=== PATIENT | female | born 1965 ===

== ENCOUNTER 2017-05-27 10:28 | Inpatient (IN) | payer MEDICARE ==
--- NOTE | 2017-05-22 11:23 | Anesthesia Consultation ---
Anesthesia Consult and Med Hx Date of service: 05/27/17 - Airway Anesthetic Teeth Evaluation: Good, Dentures (upper) ROM Head & Neck: Adequate Mental/Hyoid Distance: Adequate Mallampati Class: Class II Intubation Access Assessment: Probably Good - Pulmonary Exam CTA: Yes - Cardiac Exam Cardiac Exam: RRR - Pre-Operative Health Status ASA Pre-Surgery Classification: ASA3 Proposed Anesthetic Plan: General Nerve Block: adductor canal - Pulmonary Hx Smoking: No Hx Asthma: No Hx Respiratory Symptoms: No (+tb skin test, negative CXR) Hx Sleep Apnea: No (LUISA PRE SCREEN HIGH RISK) - Cardiovascular System Hx Hypertension: Yes (X 20 YRS) Hx Heart Murmur: Yes (CUASES NO PROBLEMS) - Central Nervous System Hx Neuromuscular Disorder: Yes (rheumatoid arthritis) Hx Back Pain: Yes Hx Psychiatric Problems: Yes - Gastrointestinal Hx Gastroesophageal Reflux Disease: Yes - Endocrine Hx Renal Disease: No Hx Cirrhosis: No Hx Thyroid Disease: No - Other Systems Hx Cancer: No Hx Obesity: Yes
[~2017-05-27 10:28] MED LIST: NACL 0.9% 1000 ML 1,000 ML IV SCH; PEPCID PO NR; SUBLIMAZE IV NR; VERSED IV NR
[2017-06-03] MEDS ORDERED: VERSED IV NR (06:00)
[2017-06-03] MEDS ORDERED: PEPCID PO NR (06:00)
[2017-06-03] MEDS ORDERED: SUBLIMAZE IV NR (07:00)
[2017-06-03] MEDS ORDERED: ANCEF/STERILE WATER 2 GM/20 ML IV NR (07:00)
[2017-06-03] MEDS ORDERED: XYLOCAINE 1% 20 mL ONE (10:28)
[2017-06-03] MEDS ORDERED: MARCAINE 0.25% INFILTRATI ONE ×3 (10:29→16:10)
[2017-06-03] MEDS ORDERED: NACL 0.9% 250ML 250 ML ONE (10:29)
[2017-06-03] MEDS ORDERED: POLYMYXIN B SULFATE IV ONE ×3 (10:29→15:26)
[2017-06-03] MEDS ORDERED: NACL ONE (10:29)
[2017-06-03] MEDS ORDERED: TORADOL ONE (10:29)
[2017-06-03] MEDS ORDERED: CLORPACTIN WCS-90 IR ONE (10:30)
[2017-06-03] MEDS ORDERED: BACITRACIN ONE (10:30)
[2017-06-03] MEDS: NACL 0.9% 1000 ML 1,000 ML IV SCH ×2 (12:00→22:57)
[2017-06-03] MEDS ORDERED: MARCAINE 0.5% 30 ML INFILTRATI ONE (13:26)
[2017-06-03] MEDS ORDERED: TRANEXAMIC ACID ONE (13:41)
[2017-06-03] MEDS ORDERED: SUBLIMAZE ONE (13:43)
[2017-06-03] MEDS ORDERED: DIPRIVAN 10 MG/ML IV ONE (13:43)
[2017-06-03] MEDS ORDERED: TRANEXAMIC ACID IV ONE (13:59)
[2017-06-03] MEDS ORDERED: NEO SYNEPHRINE/NS Syringe(OR USE) IV ONE (14:00)
[2017-06-03] MEDS ORDERED: VANCOMYCIN/NS 1 GM/250 ML 1 GM/250 ML BAG IV ONE (14:00)
[2017-06-03] MEDS ORDERED: NEO SYNEPHRINE ONE (14:06)
[2017-06-03] MEDS ORDERED: DECADRON ONE (14:16)
[2017-06-03] MEDS ORDERED: ROBINUL ONE ×2 (14:16→15:49)
[2017-06-03] MEDS ORDERED: ZOFRAN ONE (14:16)
[2017-06-03] MEDS ORDERED: XYLOCAINE MPF 2% ONE (14:34)
[2017-06-03] MEDS ORDERED: ZEMURON IV ONE (14:34)
[2017-06-03] MEDS ORDERED: MORPHINE ONE (15:15)
[2017-06-03] MEDS ORDERED: NACL 0.9% 1000 ML 1,000 ML ONE (15:19)
[2017-06-03] MEDS ORDERED: BACITRACIN IR ONE ×2 (15:25)
[2017-06-03] MEDS ORDERED: NEOSTIGMINE ONE (15:50)
[2017-06-03] MEDS ORDERED: NACL INFILTRATI ONE ×2 (16:10)
[2017-06-03] MEDS ORDERED: TORADOL PO ONE ×2 (16:10)
[2017-06-03] MEDS ORDERED: MORPHINE IM ONE ×2 (16:10)
[2017-06-03] MEDS ORDERED: MILK OF MAGNESIA PO PRN (17:09)
[2017-06-03] MEDS ORDERED: ZOFRAN IV PRN (17:09)
[2017-06-03] MEDS ORDERED: PHENERGAN PR PRN (17:09)
[2017-06-03] MEDS ORDERED: NORCO 10/325 PO PRN (17:14)
--- NOTE | 2017-06-03 17:21 | Anesthesia Day of Surgery ---
Anesthesia Day of Surgery - Day of Surgery Patient Examined: Yes Patient H&P Reviewed: Yes Patient is NPO: Yes
[2017-06-03] MEDS ORDERED: VANCOMYCIN 1,750 MG in NACL 0.9% 500 ML 500 ML IV SCH (17:30)
--- NOTE | 2017-06-03 17:53 | Post Anesthesia Evaluation ---
- Post Anesthesia Evaluation Patient Participated: Yes Airway Patent: Yes Stable Respiratory Function: Yes Nausea/Vomiting: No Temp > 96.8F: Yes Pain Manageable: Yes Adequeate Hydration: Yes Anesthesia Complications: No Block Receding Appropriately: Not Applicable Patient on Ventilator: No
[2017-06-03] MEDS ORDERED: VANCOMYCIN/NS 1 GM/250 ML 1 GM/250 ML BAG IV SCH (18:00)
[2017-06-03] MEDS ORDERED: ANCEF/STERILE WATER 2 GM/20 ML 2 GM/20 ML SYRINGE IV SCH (18:00)
[2017-06-03] MEDS ORDERED: SODIUM CHLORIDE FLUSH SYRINGE 10 ML IV NR (18:00)
--- NOTE | 2017-06-03 18:18 | XRay Report ---
FINAL REPORT EXAM: XR KNEE 1-2V RT HISTORY: POSTOP TECHNIQUE: AP and lateral radiographs of the right knee. PRIORS: None. FINDINGS: Right knee prosthesis is present without evidence of hardware complication. No dislocation. Normal mineralization. Soft tissue swelling anterior to the right knee is likely postsurgical. Air and fluid in the joint space is likely postsurgical. IMPRESSION: Postoperative findings of right knee prosthesis placement without evidence of immediate complication.
--- NOTE | 2017-06-03 20:00 | Operative Report ---
PREOPERATIVE DIAGNOSIS: 1. Severe advanced osteoarthritis, right knee joint. 2. Severe genu valgum deformity, stiff right knee joint. POSTOPERATIVE DIAGNOSIS: 1. Severe advanced osteoarthritis, right knee joint. 2. Severe genu valgum deformity, stiff right knee joint. PROCEDURES PERFORMED: 1. Right total knee replacement, complex. 2. Partial synovectomy, right knee joint. SURGEON: Dagoberto Acosta M.D. GRAIN COMBINER: Kaur Lazo, [employer] tech, and Deven [employer] tech. IMPLANTS USED: Legion Oxinium femoral component, femur size 5 tibial tray size 4, prolong Poly-S, polyethylene liner 9 mm, highly cross-linked. Stabilized insert constrained insert. Patella all-poly 3 peg patella size 32 mm, 3 post 7.5 mm thick. Cement Palacos R plus G. Incision, midline incision. Arthrotomy, medial parapatellar arthrotomy. Medial release, no lateral release, yes, release of lateral and posterolateral capsular release of the IT band. COMPLICATIONS: None. DETAILS OF THE OPERATIVE REPORT: The patient was taken to the operating room. Smooth general endotracheal anesthesia, all the bony prominences were carefully padded, placed supine on the operating table. Thigh tourniquet was placed. Right lower extremity prepped and draped in sterile fashion. Leg elevated, tourniquet. After adequate timeout was done, and 2 g Ancef given before the procedure along with 1 g of vancomycin given her history. Leg elevated, Esmarch used, and tourniquet inflated to 300 mmHg. Longitudinal incision made over the anterior aspect of the knee exposing the extensive mechanism. Arthrotomy was performed. Patella displaced laterally. Gross finding revealed severe advanced degenerative arthritis. Soft tissue release was performed to correct the fixed angular deformity, only necessary release was done only the retractors on medial side, no medial release was performed as such. Significant amount of arthritis was encountered. Drill was used to open up the femoral canal. Distal intramedullary femoral cutting guide was placed. Distal femur resected 5 degree valgus angle. Epicondylar access apex was determined. Femoral sizing guide was placed, appropriate components selected. Anterior and posterior condyles were resected with the oscillating saw. Following this, the extramedullary tibial cutting guide was placed. The proximal tibia resected perpendicular to the long axis of tibia, minimum bone resection was performed given the stretched out medial collateral ligament. There was a defect on the posterolateral tibia. We did gap balancing technique was then performed. Spacer blocks were used, there was some tightness in extension and in flexion, necessary release of the capsule and the IT band was performed, and good balancing was achieved with the spacer block by spacer. We had great stability, full extension, full flexion, balanced laterally in flexion and extension as well. We decided to go. The tibia was then prepared, but tibial reaming and broach system by placing the tibial tray in proper position, proper external rotation, impacted in place, and prepared for the procedure in her respective patellar aspect of the tibia. Reaming and broach system by placing the tibial tray in proper position, proper external rotation. Femur was then positioned. Femur was then prepared for a Partida and Nephew trial femur. Through Partida and Nephew trial femur, by reaming and punch technique. Following this, the patella for prepatellar thickness was measured to 22 mm. Post-patellar thickness 22.5 mm. Osteophytes around the patella was removed. Synovium was incised. Patella prepared via patellar reaming system prepared for three post-patella. Patella was then moved through range of motion, patella tracked central throughout range of motion. With trial components, we had full extension, full flexion, stable throughout range of motion. Patellar tracking central. Trial components were removed. Thoroughly washed the knee area with antibiotic-soaked normal saline followed by normal saline and partial synovectomy was performed. The defect on the proximal lateral tibia were needed drill holes and was not significant enough less than 5 mm and the pole was only on the circumscribed defect on the posteromedial side and necessary drill holes were made, some bone grafting were placed as well and built with cement. Cementing on the knee was then performed. Tibia was cemented first, set in proper position, proper external rotation, impacted in place. Excess cement was removed. Femur was then cemented in proper position, proper external rotation, and impacted in place. The excess cement was removed. Cementing of the patella was performed, compressed in place. Excess cement was removed. Once the cement was hardened, real tibial articulating surface was implanted and locked in place. Knee moved through range of motion and found to be extremely stable. No active bleeder as such after tourniquet was released, hemostasis achieved. No active bleeder as such. Arthrotomy closed using combination of #2 Quill suture and with 0 Vicryl sutures. Subcutaneous tissue was closed with 0 and 2-0 Vicryl interrupted sutures. Skin was closed with 2-0 Monocryl. Gauze dressing was done with Adaptic, 4 x 4s, ABD, cast padding, Cristobal wrap, and knee immobilizer was applied. Given the significant release, which was done and the deformity corrected and ice packs were applied. The patient tolerated the procedure well, shifted to recovery room in stable condition. Sponge and needle count was correct. JOB# [id number] SK/NTS
--- NOTE | 2017-06-03 20:15 | Consultation ---
History of Present Illness - Reason for Consult Consult date: 06/03/17 Medical management Requesting physician: FABIOLA LEVI - History of Present Illness PECHANGA:51-year-old female status post right total knee arthroplasty is being seen for medical management. Patient is postop and doing well. Lying comfortably. Family at bedside. Patient has history of rheumatoid arthritis and hypertension.No fever no chills. No shortness of breath. Past History Past Medical History: arthritis (rheumatoid arthritis), GERD, hypertension, other (depression) Past Surgical History: total knee replacement Social history: no significant social history, lives with family, full code Family history: hypertension Medications and Allergies Allergies Allergy/AdvReac Type Severity Reaction Status Date / Time ciprofloxacin [From Cipro] Allergy ELEVATED Verified 05/20/17 16:30 HEART RATE oxycodone [From Percocet] Allergy Itching Verified 05/20/17 16:30 Home Medications Medication Instructions Recorded Confirmed Last Taken Type Duloxetine HCl [Cymbalta] 60 mg PO DAILY 05/20/17 06/03/17 06/03/17 History Lisinopril [Zestril TAB] 30 mg PO QDAY 05/20/17 06/03/17 06/03/17 History Meloxicam 15 mg PO DAILY 05/20/17 06/03/17 05/20/17 History Pantoprazole [Protonix] 40 mg PO QDAY 05/20/17 06/03/17 06/03/17 History Prednisone 5 mg PO DAILY 05/20/17 06/03/17 06/03/17 History Tofacitinib Citrate [Xeljanz Xr] 11 mg PO DAILY 05/20/17 06/03/17 05/27/17 History Active Meds: Active Medications Acetaminophen/Hydrocodone Bitart ([place] 10/325) 1 each PO Q4H PRN PRN Reason: Pain, Moderate (4-6) Aspirin (Halfprin Ec) 81 mg PO BID [facility] Stop: 07/08/17 21:59 Celecoxib (Celebrex) 200 mg PO BID [facility] Docusate Sodium (Colace) 100 mg PO BID [facility] Duloxetine HCl (Cymbalta) 60 mg PO QDAY [facility] Famotidine (Pepcid) 20 mg PO PREOP NR Stop: 06/03/17 23:59 Last Admin: 06/03/17 12:00 Dose: 20 mg Fentanyl (Sublimaze) 100 mcg IV ONCE NR Stop: 06/03/17 23:59 Last Admin: 06/03/17 13:06 Dose: 100 mcg Sodium Chloride (Nacl 0.9% 1000 Ml) 1,000 mls @ 100 mls/hr IV DIRECT [facility] Last Admin: 06/03/17 12:00 Dose: 100 mls/hr Cefazolin Sodium (Ancef/Sterile Water 2 Gm/20 Ml) 2 gm in 20 mls @ 20 mls/10 min IV Q8H [facility] Stop: 06/04/17 14:09 Vancomycin HCl (Vancomycin/Ns 1 Gm/250 Ml) 1 gm in 250 mls @ 166.667 mls/hr IV Q12H [facility] Stop: 06/04/17 15:29 Ketorolac Tromethamine (Toradol) 15 mg IV Q6HR [facility] Stop: 06/04/17 12:01 Lisinopril (Zestril) 30 mg PO QDAY [facility] Magnesium Hydroxide (Milk Of Magnesia) 30 ml PO Q4H PRN PRN Reason: Constipation Midazolam HCl (Versed) 2 mg IV PREOP NR Stop: 06/03/17 23:59 Last Admin: 06/03/17 13:35 Dose: 2 mg Morphine Sulfate (Morphine) 2 mg IV Q4H PRN PRN Reason: Pain, Moderate (4-6) Ondansetron HCl (Zofran) 4 mg IV Q8H PRN PRN Reason: Nausea And Vomiting Pantoprazole Sodium (Protonix) 40 mg PO QDAY [facility] Prednisone (Deltasone) 5 mg PO DAILY [facility] Pregabalin (Lyrica) 75 mg PO BID [facility] Promethazine HCl (Phenergan) 25 mg GA Q6H PRN PRN Reason: Nausea And Vomiting Sodium Chloride (Sodium Chloride Flush Syringe 10 Ml) 10 ml IV PRN NR Stop: 06/04/17 17:59 Review of Systems All systems: negative Constitutional: no weight loss, no weight gain, no fever, no chills, no sweats, no night sweats Ears, nose, mouth and throat: no hoarseness, no sore throat, no swelling in mouth, no swelling in throat Breasts: deferred, normal Cardiovascular: no chest pain, no orthopnea, no palpitations, no rapid/ irregular heart beat, no edema, no syncope, no lightheadedness, no shortness of breath Respiratory: no cough, no cough with sputum, no excessive sputum, no hemoptysis , no shortness of breath, no dyspnea on exertion Gastrointestinal: no abdominal pain, no nausea, no vomiting, no diarrhea, no constipation, no change in bowel habits, no hematemesis, no coffee ground emesis Genitourinary Female: no dysuria, no urinary frequency, no urgency Menstruation: ammenorrhea Musculoskeletal: low back pain, no neck stiffness, no neck pain, no shooting arm pain Integumentary: no rash, no pruritis, no redness Neurological: no seizures, no syncope Psychiatric: no anxiety, no memory loss, no change in sleep habits, no sleep disturbances, no insomnia Endocrine: no cold intolerance, no heat intolerance, no polyphagia, no excessive thirst, no polydipsia Hematologic/Lymphatic: no easy bruising, no easy bleeding Allergic/Immunologic: no urticaria, no allergic rhinitis, no wheezing Exam - Constitutional Vitals: Temp Pulse Resp BP Pulse Ox 98.7 F 64 18 110/48 95 06/03/17 18:39 06/03/17 18:39 06/03/17 18:39 06/03/17 18:39 06/03/17 18:39 General appearance: Present: no acute distress, well-nourished - EENT Eyes: Present: PERRL ENT: hearing intact, clear oral mucosa - Neck Neck: Present: supple, normal ROM - Respiratory Respiratory effort: normal Respiratory: bilateral: CTA - Cardiovascular Heart rate: 76 Rhythm: regular Heart Sounds: Present: S1 & S2. Absent: rub, click - Extremities Extremities: no ischemia, pulses intact, pulses symmetrical, No edema Extremity abnormal: other Peripheral Pulses: within normal limits - Abdominal General gastrointestinal: Present: soft, non-tender, non-distended, normal bowel sounds Female genitourinary: Present: normal - Rectal Rectal Exam: deferred - Integumentary Integumentary: Present: clear, warm, dry - Musculoskeletal Musculoskeletal: gait normal, strength equal bilaterally - Psychiatric Psychiatric: appropriate mood/affect, intact judgment & insight - Neurologic Neurologic: CNII-XII intact, moves all extremities - Allied Health Allied health notes reviewed: nursing, case management Assessment and Plan - Patient Problems (1) History of total knee arthroplasty Current Visit: Yes Status: Acute Qualifiers: Laterality: right Qualified Code(s): Z96.651 - Presence of right artificial knee joint Plan to address problem: status post right TKA. Postop patient doing well. Patient to undergo physical therapy. Possible discharge on Thursday (2) Rheumatoid arthritis Current Visit: Yes Status: Chronic Qualifiers: Rheumatoid arthritis location: hand Laterality: bilateral Plan to address problem: continue meloxicam prednisone and XELJANZ XR which is Tofacitinib citrate. (3) Hypertension Current Visit: Yes Status: Chronic Qualifiers: Hypertension type: essential hypertension Qualified Code(s): I10 - Essential (primary) hypertension Plan to address problem: continue lisinopril 30 mg once a day. (4) Depression Current Visit: Yes Status: Chronic Qualifiers: Depression Type: unspecified Qualified Code(s): F32.9 - Major depressive disorder, single episode, unspecified Plan to address problem: continue Cymbalta 60 mg once a day (5) Pain management Current Visit: Yes Status: Acute Plan to address problem: patient has adequate pain management. Not in pain. (6) DVT prophylaxis Current Visit: Yes Status: Acute Plan to address problem: patient on aspirin 81 mg twice a day (7) Discharge planning issues Current Visit: Yes Status: Acute Plan to address problem: patient to be discharged on Thursday after physical therapy
[2017-06-03] MEDS ORDERED: ceFAZolin 2 GM in NACL 0.9% 100 ML IV SCH (22:00)
[2017-06-03] MEDS: HALFPRIN EC PO SCH (22:58)
[2017-06-03] MEDS: COLACE PO SCH (22:59)
[2017-06-03] MEDS: LYRICA PO SCH (22:59)
[2017-06-03] MEDS: TORADOL IV SCH (23:02)
[2017-06-03] MEDS: ANCEF/STERILE WATER 2 GM/20 ML 2 GM/20 ML SYRINGE IV SCH (23:08)
[2017-06-04] MEDS: MORPHINE IV PRN ×4 (01:35→22:59)
[2017-06-04] MEDS: VANCOMYCIN/NS 1 GM/250 ML 1 GM/250 ML BAG IV SCH ×2 (01:36→16:20)
[2017-06-04] MEDS: TORADOL IV SCH ×4 (02:45→14:20)
[2017-06-04 05:26] LABS: Hematocrit 31.3 % (30.3-42.9); Hemoglobin 10.8 gm/dl (10.1-14.3)
[2017-06-04 05:37] LABS: INR 0.96 (0.87-1.13)
[2017-06-04 05:49] LABS: Anion Gap 14 mmol/L; BUN/Creatinine Ratio 20; Blood Urea Nitrogen 10 mg/dL (7-17); Calcium 8.1 mg/dL (8.4-10.2); Carbon Dioxide 24 mmol/L (22-30); Chloride 105.8 mmol/L (98-107); Glucose 127 mg/dL (65-100); Potassium 4.9 mmol/L (3.6-5.0); Sodium 139 mmol/L (137-145)
[2017-06-04] MEDS: ANCEF/STERILE WATER 2 GM/20 ML 2 GM/20 ML SYRINGE IV SCH ×2 (06:23→16:03)
[2017-06-04] MEDS ORDERED: NON-FORMULARY (Lisinopril [Zestril Tab] 30 MG) PO SCH (10:00)
[2017-06-04] MEDS ORDERED: NON-FORMULARY (Duloxetine Hcl [Cymbalta] 60 MG) PO SCH (10:00)
[2017-06-04] MEDS: CYMBALTA PO SCH (12:04)
[2017-06-04] MEDS: HALFPRIN EC PO SCH ×2 (12:05→22:04)
[2017-06-04] MEDS: LYRICA PO SCH ×2 (12:05→22:04)
[2017-06-04] MEDS: COLACE PO SCH ×2 (12:05→22:04)
[2017-06-04] MEDS: ZESTRIL PO SCH (12:05)
[2017-06-04] MEDS: DELTASONE PO SCH (12:05)
[2017-06-04] MEDS: PROTONIX PO SCH (12:05)
--- NOTE | 2017-06-04 15:45 | Progress Note ---
Assessment and Plan (1) History of total knee arthroplasty Current Visit: Yes Status: Acute Qualifiers: Laterality: right Qualified Code(s): Z96.651 - Presence of right artificial knee joint Plan to address problem: status post right TKA. Postop patient doing well. Patient to undergo physical therapy. Possible discharge on Thursday (2) Rheumatoid arthritis Current Visit: Yes Status: Chronic Qualifiers: Rheumatoid arthritis location: hand Laterality: bilateral Plan to address problem: continue meloxicam prednisone and XELJANZ XR which is Tofacitinib citrate. (3) Hypertension Current Visit: Yes Status: Chronic Qualifiers: Hypertension type: essential hypertension Qualified Code(s): I10 - Essential (primary) hypertension Plan to address problem: continue lisinopril 30 mg once a day. (4) Depression Current Visit: Yes Status: Chronic Qualifiers: Depression Type: unspecified Qualified Code(s): F32.9 - Major depressive disorder, single episode, unspecified Plan to address problem: continue Cymbalta 60 mg once a day (5) Pain management Current Visit: Yes Status: Acute Plan to address problem: patient has adequate pain management. Not in pain. (6) DVT prophylaxis Current Visit: Yes Status: Acute Plan to address problem: patient on aspirin 81 mg twice a day (7) Discharge planning issues Current Visit: Yes Status: Acute Plan to address problem: patient to be discharged on Thursday after physical therapy Physical exam: General appearance: Present: no acute distress, well-nourished - EENT Eyes: Present: PERRL ENT: hearing intact, clear oral mucosa - Neck Neck: Present: supple, normal ROM - Respiratory Respiratory effort: normal Respiratory: bilateral: CTA - Cardiovascular Heart rate: 76 Rhythm: regular Heart Sounds: Present: S1 & S2. Absent: rub, click - Extremities Extremities: no ischemia, pulses intact, pulses symmetrical, No edema Extremity abnormal: other Peripheral Pulses: within normal limits - Abdominal General gastrointestinal: Present: soft, non-tender, non-distended, normal bowel sounds Female genitourinary: Present: normal - Rectal Rectal Exam: deferred - Integumentary Integumentary: Present: clear, warm, dry - Musculoskeletal Musculoskeletal: gait normal, strength equal bilaterally - Psychiatric Psychiatric: appropriate mood/affect, intact judgment & insight - Neurologic Neurologic: CNII-XII intact, moves all extremities - Allied Health Allied health notes reviewed: nursing, case management Subjective Date of service: 06/04/17 Interval history: Pt seen and examined no acute issue, had PT eval today Objective - Constitutional Vitals: Vital Signs - 12hr 06/04/17 06/04/17 06/04/17 04:31 04:32 06:22 Temperature 98.0 F Pulse Rate 74 74 Respiratory 20 20 Rate Blood Pressure 90/52 Blood Pressure [Right] O2 Sat by Pulse 93 93 Oximetry 06/04/17 06/04/17 06/04/17 06:52 07:08 10:34 Temperature 98.3 F Pulse Rate 63 Respiratory 20 18 Rate Blood Pressure 89/54 Blood Pressure [Right] O2 Sat by Pulse 95 95 Oximetry 06/04/17 12:00 Temperature 98.1 F Pulse Rate 89 Respiratory 16 Rate Blood Pressure Blood Pressure 89/51 [Right] O2 Sat by Pulse 96 Oximetry - Labs CBC & Chem 7: 06/04/17 04:55 06/04/17 04:55 Labs: Abnormal lab results 06/04/17 Range/Units 04:55 Creatinine 0.5 L (0.7-1.2) mg/dL Glucose 127 H (65-100) mg/dL Calcium 8.1 L (8.4-10.2) mg/dL
[2017-06-04] MEDS: NACL 0.9% 1000 ML 1,000 ML IV SCH ×2 (16:04→22:05)
[2017-06-05] MEDS: ZESTRIL PO SCH (10:23)
[2017-06-05] MEDS: CYMBALTA PO SCH (10:27)
[2017-06-05] MEDS: PROTONIX PO SCH (10:28)
[2017-06-05] MEDS: DELTASONE PO SCH (10:29)
[2017-06-05] MEDS: HALFPRIN EC PO SCH (10:30)
[2017-06-05] MEDS: LYRICA PO SCH (10:30)
[2017-06-05] MEDS: COLACE PO SCH (10:30)
[2017-06-05] MEDS: MORPHINE IV PRN (10:58)
[2017-06-05] MEDS: NACL 0.9% 1000 ML 1,000 ML IV SCH (10:59)
--- NOTE | 2017-06-05 11:14 | Progress Note ---
Assessment and Plan (1) History of total knee arthroplasty Current Visit: Yes Status: Acute Qualifiers: Laterality: right Qualified Code(s): Z96.651 - Presence of right artificial knee joint Plan to address problem: status post right TKA. Postop patient doing well. Patient to undergo physical therapy. Possible discharge today (2) Rheumatoid arthritis Current Visit: Yes Status: Chronic Qualifiers: Rheumatoid arthritis location: hand Laterality: bilateral Plan to address problem: continue meloxicam prednisone and XELJANZ XR which is Tofacitinib citrate. (3) Hypertension Current Visit: Yes Status: Chronic Qualifiers: Hypertension type: essential hypertension Qualified Code(s): I10 - Essential (primary) hypertension Plan to address problem: continue lisinopril 30 mg once a day. (4) Depression Current Visit: Yes Status: Chronic Qualifiers: Depression Type: unspecified Qualified Code(s): F32.9 - Major depressive disorder, single episode, unspecified Plan to address problem: continue Cymbalta 60 mg once a day (5) Pain management Current Visit: Yes Status: Acute Plan to address problem: patient has adequate pain management. Not in pain. (6) DVT prophylaxis Current Visit: Yes Status: Acute Plan to address problem: patient on aspirin 81 mg twice a day will place on lovenox (7) Discharge planning issues Current Visit: Yes Status: Acute Plan to address problem: patient to be discharged on Thursday after physical therapy Physical exam: General appearance: Present: no acute distress, well-nourished - EENT Eyes: Present: PERRL ENT: hearing intact, clear oral mucosa - Neck Neck: Present: supple, normal ROM - Respiratory Respiratory effort: normal Respiratory: bilateral: CTA - Cardiovascular Heart rate: 76 Rhythm: regular Heart Sounds: Present: S1 & S2. Absent: rub, click - Extremities Extremities: no ischemia, pulses intact, pulses symmetrical, No edema Extremity abnormal: other Peripheral Pulses: within normal limits - Abdominal General gastrointestinal: Present: soft, non-tender, non-distended, normal bowel sounds Female genitourinary: Present: normal - Rectal Rectal Exam: deferred - Integumentary Integumentary: Present: clear, warm, dry - Musculoskeletal Musculoskeletal: gait normal, strength equal bilaterally, right knee with wound dressing - Psychiatric Psychiatric: appropriate mood/affect, intact judgment & insight - Neurologic Neurologic: CNII-XII intact, moves all extremities - Allied Health Allied health notes reviewed: nursing, case management Subjective Date of service: 06/05/17 Interval history: Pt seen and examined no acute issue, plan to dc today Objective - Constitutional Vitals: Vital Signs - 12hr 06/05/17 06/05/17 06/05/17 00:12 04:44 09:52 Temperature 98.9 F 98.5 F Pulse Rate 76 83 Respiratory 18 18 Rate Blood Pressure 112/79 105/62 O2 Sat by Pulse 94 97 97 Oximetry - Labs CBC & Chem 7: 06/04/17 04:55 06/04/17 04:55
--- NOTE | 2017-06-05 11:51 | Progress Note ---
Subjective Date of service: 06/05/17 Interval history: ortho POD2, patient doing well with PT pain under control avss, NVI DResssing dry alert oriented DC planning once clear by medicine , PT , and once HH arrangemenmts are made KI for 3 days follow up thursday Objective Vital signs: Vital Signs - 12hr 06/05/17 06/05/17 06/05/17 00:12 04:44 09:52 Temperature 98.9 F 98.5 F Pulse Rate 76 83 Respiratory 18 18 Rate Blood Pressure 112/79 105/62 O2 Sat by Pulse 94 97 97 Oximetry - Labs CBC & BMP: 06/04/17 04:55 06/04/17 04:55
[2017-06-05] MEDS ORDERED: LOVENOX SUB-Q ONE (12:14)
[2017-06-05 14:46] VITALS: BP 101/66
== END 2017-06-05 19:00 | disposition home health service (06) | DRG 470 ==
LOC: 3A 06-03 10:33 → 3B-SURG 06-03 18:34
PROVIDERS: ADMIT Orthopaedic Surgery; ATTEND Internal Medicine
PROC: 0SRC069 Replacement of Right Knee Joint with Oxidized Zirconium on Polyethylene Synthetic Substitute, Cemented, Open Approach (ICD-10-PCS; principal; 2017-06-03)
PROC: 0SBC0ZZ Excision of Right Knee Joint, Open Approach (ICD-10-PCS; 2017-06-03)
DX: M17.11 Unilateral primary osteoarthritis, right knee (principal); M21.061 Valgus deformity, not elsewhere classified, right knee; I10 Essential (primary) hypertension; F32.9 Major depressive disorder, single episode, unspecified; M06.9 Rheumatoid arthritis, unspecified; M54.9 Dorsalgia, unspecified; K21.9 Gastro-esophageal reflux disease without esophagitis; E66.9 Obesity, unspecified; Z68.30 Body mass index [BMI] 30.0-30.9, adult; Z82.49 Family history of ischemic heart disease and other diseases of the circulatory system; Z88.1 Allergy status to other antibiotic agents; Z88.5 Allergy status to narcotic agent
CPT/HCPCS: 36415; 64450; 80048; 85014; 85018; 85610; 86850; 86900; 86901; 87116; 88305; 88311; 94760; C1713; C1776; G8978-GP; G8979-GP; J0690; J1100; J1885; J2250; J2270; J2370; J2405; J2704; J2710; J3010; J3370; J7030; J7040; J7050; J7512

== ENCOUNTER 2017-12-10 09:50 | Emergency (ER) | payer MEDICARE ==
--- NOTE | 2017-12-10 11:00 | Emergency Department Report ---
ED Medical Clearance HPI - General Chief complaint: Medical Clearance Stated complaint: NEEDS PIC LINE BACK IN Time Seen by Provider: 12/10/17 10:46 Source: patient Mode of arrival: Wheelchair - History of Present Illness Initial comments: Patient was sent to the ED by her primary doctor to have her PICC Line evaluated and possibly replaced. She said her PICC line is not functioning properly. -: Sudden Reason for Medical Clearance: other (PICC line non functioning) Place: home Alledged Intoxication: No Compliant with Home Medications: Yes Traumatic Symptoms: denies traumatic injury Treatments Prior to Arrival: none Home medications: Home Medications Medication Instructions Recorded Confirmed Last Taken Duloxetine HCl [Cymbalta] 60 mg PO DAILY 05/20/17 11/27/17 11/27/17 Prednisone 5 mg PO DAILY 05/20/17 11/27/17 11/27/17 Aspirin 325 mg PO BID 11/27/17 11/27/17 11/27/17 Previous Rx's Medication Instructions Recorded Last Taken Type Enoxaparin [Lovenox] 40 mg SUB-Q QDAY@2200 #10 syringe 12/03/17 Unknown Rx HYDROcodone/APAP 10-325 [[place] 1 each PO Q4H PRN #60 tablet 12/03/17 Unknown Rx 10-325 mg TAB] Pantoprazole [Protonix TAB] 40 mg PO QDAY #30 tablet 12/03/17 Unknown Rx Promethazine [Phenergan SUPPOS] 25 mg OK Q6H PRN #14 supp.rect 12/03/17 Unknown Rx cefTRIAXone [Ceftriaxone] 2 gm IV Q24HR #7 vial 12/03/17 Unknown Rx Allergies/Adverse reactions: Allergies Allergy/AdvReac Type Severity Reaction Status Date / Time ciprofloxacin [From Cipro] Allergy ELEVATED Verified 12/10/17 13:47 HEART RATE oxycodone [From Percocet] Allergy Itching Verified 12/10/17 13:47 ED Review of Systems ROS: Stated complaint: NEEDS PIC LINE BACK IN Other details as noted in HPI Comment: All other systems reviewed and negative Constitutional: denies: chills, fever Eyes: denies: eye pain ENT: denies: ear pain Respiratory: denies: cough, shortness of breath Cardiovascular: denies: chest pain, palpitations, edema Endocrine: no symptoms reported Gastrointestinal: denies: abdominal pain, nausea, vomiting, diarrhea Genitourinary: denies: urgency, dysuria, frequency Musculoskeletal: denies: back pain, joint swelling Skin: denies: rash, lesions, change in color Neurological: denies: headache, weakness, numbness Psychiatric: denies: anxiety, depression Hematological/Lymphatic: denies: easy bleeding, easy bruising ED Past Medical Hx - Past Medical History Hx Hypertension: Yes (X 20 YRS) Hx Congestive Heart Failure: No Hx Diabetes: No Hx Deep Vein Thrombosis: No Hx GERD: Yes Hx Renal Disease: No Hx Arthritis: Yes (RA- DAILY STEROIDS) Hx Asthma: No Hx COPD: No Hx Tuberculosis: No (POSITIVE SKIN TEST,NO [place] , NEG CXR EARLY 2016) Hx HIV: No - Surgical History Past Surgical History?: No Hx Pacemaker: No Hx Internal Defibrillator: No - Social History Smoking Status: Never Smoker Substance Use Type: Alcohol - Medications Home Medications: Home Medications Medication Instructions Recorded Confirmed Last Taken Type Duloxetine HCl [Cymbalta] 60 mg PO DAILY 05/20/17 11/27/17 11/27/17 History Prednisone 5 mg PO DAILY 05/20/17 11/27/17 11/27/17 History Aspirin 325 mg PO BID 11/27/17 11/27/17 11/27/17 History Enoxaparin [Lovenox] 40 mg SUB-Q QDAY@2200 #10 syringe 12/03/17 Unknown Rx HYDROcodone/APAP 10-325 [[place] 1 each PO Q4H PRN #60 tablet 12/03/17 Unknown Rx 10-325 mg TAB] Pantoprazole [Protonix TAB] 40 mg PO QDAY #30 tablet 12/03/17 Unknown Rx Promethazine [Phenergan SUPPOS] 25 mg [place] Q6H PRN #14 supp.rect 12/03/17 Unknown Rx cefTRIAXone [Ceftriaxone] 2 gm IV Q24HR #7 vial 12/03/17 Unknown Rx ED Physical Exam - General Limitations: No Limitations General appearance: alert, in no apparent distress - Head Head exam: Present: atraumatic, normocephalic, normal inspection - Eye Eye exam: Present: normal appearance, PERRL, EOMI Pupils: Present: normal accommodation - ENT ENT exam: Present: normal exam, normal orophraynx, mucous membranes moist - Neck Neck exam: Present: normal inspection, full ROM. Absent: tenderness - Respiratory Respiratory exam: Present: normal lung sounds bilaterally. Absent: respiratory distress, wheezes, rales, rhonchi - Cardiovascular Cardiovascular Exam: Present: regular rate, normal rhythm, normal heart sounds - GI/Abdominal GI/Abdominal exam: Present: soft, normal bowel sounds. Absent: distended, tenderness, guarding, rebound - Extremities Exam Extremities exam: Present: normal inspection, full ROM, normal capillary refill - Back Exam Back exam: Present: normal inspection, full ROM - Neurological Exam Neurological exam: Present: alert, oriented X3, CN II-XII intact - Psychiatric Psychiatric exam: Present: normal affect, normal mood - Skin Skin exam: Present: warm, dry, intact, normal color ED Course Vital Signs 12/10/17 10:06 Temperature 98.9 F Pulse Rate 81 Respiratory 18 Rate Blood Pressure 122/78 O2 Sat by Pulse 98 Oximetry ED Medical Decision Making - Medical Decision Making PICC Line Malfunction. ED Disposition Clinical Impression: Occlusion of peripherally inserted central catheter (PICC) line Qualifiers: Encounter type: initial encounter Qualified Code(s): T82.898A - Other specified complication of vascular prosthetic devices, implants and grafts, initial encounter Disposition: - TO HOME OR SELFCARE Is pt being admited?: No Does the pt Need Aspirin: No Condition: Stable Instructions: Peripherally Inserted Central Catheters and Midline Catheters (ED ) Additional Instructions: Please follow up with your regular doctor tomorrow morning. Return to the ED if your condition worsens. Referrals: PRIMARY CARE, [Primary Care Provider] - 3-5 Days Time of Disposition: 15:12
[2017-12-10] MEDS ORDERED: VANCOMYCIN IV ONE (13:30)
[2017-12-10] MEDS ORDERED: ROCEPHIN/NS 2 GM/100 ML 2 GM/100 ML BAG IV ONE (13:33)
--- NOTE | 2017-12-10 13:50 | XRay Report ---
AP CHEST: HISTORY: PICC line placement A right arm PICC has been removed since 12/02/17. A left arm PICC has been inserted which terminates in the lower SVC. AP view of the chest demonstrates a normal mediastinal and cardiac contour with clear lungs and normal bony and soft tissue structures. IMPRESSION: No acute process in the chest. Left arm PICC as described.
[2017-12-10] MEDS ORDERED: cefTRIAXone 2 GM in NACL 0.9% 20 ML IV ONE (14:00)
[2017-12-10] MEDS ORDERED: VANCOMYCIN 1,500 MG in NACL 0.9% 500 ML 500 ML IV ONE (14:00)
[2017-12-10 17:35] VITALS: BP 137/89
== END 2017-12-10 17:36 | disposition home or self-care (01) ==
LOC: ED 09:50
DX: T82.898A Other specified complication of vascular prosthetic devices, implants and grafts, initial encounter (principal); I10 Essential (primary) hypertension; K21.9 Gastro-esophageal reflux disease without esophagitis; M19.90 Unspecified osteoarthritis, unspecified site; Z88.1 Allergy status to other antibiotic agents; Z79.82 Long term (current) use of aspirin; Y84.8 Other medical procedures as the cause of abnormal reaction of the patient, or of later complication, without mention of misadventure at the time of the procedure
CPT/HCPCS: 36569; 71045; 96365; 96367; 99283; J0696; J3370; J7040